=== PATIENT | female | born 1980 | race African-American/Black ===

== ENCOUNTER 2021-11-29 15:09 | Inpatient (IN) | payer BC ==
[~2021-11-29] VITALS: Ht 157.5 cm; Wt 33.1 kg
[2021-11-29] MEDS ORDERED: METHYLPREDNISOLONE SOD SUCC 125 MG/2 ML VIAL IV STA (18:58)
[2021-11-29] MEDS ORDERED: IPRATROPIUM BROMIDE (0.02%) 0.5MG/2.5ML NEB HHN STA (18:58)
[2021-11-29] MEDS ORDERED: ALBUTEROL (0.083%) 2.5MG/3ML NEB HHN STA (18:58)
[2021-11-29 19:52] LABS: HEMATOCRIT. 42.8 % (36.0-48.0); HEMOGLOBIN. 13.8 g/dL (12.0-16.0); MEAN CORPUSCULAR VOLUME 92.7 fL (81.0-99.0); MEAN PLATELET VOLUME 10.1 fl (7.4-10.4); PLATELET 153 x1000/uL (130-400); RED BLOOD CELL COUNT 4.61 mill/uL (4.2-5.4); RED CELL DISTRIBUTION WIDTH 13.3 % (11.6-14.6)
[2021-11-29 19:57] LABS: CHLORIDE 107 mEq/L (98-107)
[2021-11-29] MEDS ORDERED: SODIUM CHLORIDE 0.9% 1000ML BAG (SEPSIS BOLUS) IV ONE (20:45)
[2021-11-29 21:44] LABS: PLATELET ESTIMATE NORMAL
[2021-11-29] MEDS ORDERED: PIPERACILLIN/TAZ 3.375G PREMIX 50 ML IV ONE (22:30)
[2021-11-29] MEDS ORDERED: VANCOMYCIN 1G PREMIX 200 ML IV ONE (22:30)
[2021-11-30] MEDS ORDERED: ACETAMINOPHEN 325MG TABLET PO PRN (07:00)
[2021-11-30] MEDS ORDERED: IPRATROPIUM/ALBUTEROL 0.5-3(2.5)MG/3ML NEB HHN PRN (07:00)
[2021-11-30] MEDS ORDERED: CLONIDINE 0.1MG TABLET PO PRN (07:00)
[2021-11-30] MEDS ORDERED: PIPERACILLIN/TAZ 3.375G PREMIX 50 ML IV SCH (07:30)
[2021-11-30] MEDS ORDERED: DEXT 5%/0.45% NACL KCL 20MEQ/L 1,000 ML IV SCH (08:00)
[2021-11-30] MEDS: FAMOTIDINE 20MG/2ML VIAL IV SCH ×2 (09:54→20:39)
[2021-11-30] MEDS: DEXAMETHASONE 10 MG/ML VIAL IV SCH (09:55)
[2021-11-30] MEDS: PIPERACILLIN/TAZOBACTAM 3.375 G in DEXTROSE 5% WATER 50 ML IV SCH ×3 (09:56→21:34)
[2021-11-30] MEDS: ENOXAPARIN 40MG/0.4ML SYR SUBCUT SCH (09:56)
[2021-11-30] MEDS: DEXT 5%/0.45% NACL KCL 20MEQ/L 1,000 ML IV SCH ×2 (09:57→20:39)
[2021-11-30 10:27] LABS: BG BASE EXCESS -0.8 mmol/L (-2.0-2.0); BG CARBOXYHEMOGLOBIN 0.1 % (0.5-1.5); BG DEOXYHEMOGLOBIN 7.3 % (0.0-5.0); BG FRACTION INSPIRED OXYGEN 21; BG HCO3 ACT 24.5 mmol/L (22.0-26.0); BG METHEMOGLOBIN 0.3 % (0.0-1.5); BG OXYGEN SATURATION 92.7 % (92.0-98.5); BG OXYHEMOGLOBIN 92.3 % (94.0-97.0); BG PCO2 43.2 mmHg (35.0-45.0); BG PH 7.372 (7.350-7.450); BG PO2 66.7 mmHg (75.0-100.0); BG SAMPLE SITE RIGHT BRACHIAL; BG TOTAL HEMOGLOBIN 13.5 g/dL (12.0-18.0); BG VENT MODE ROOM AIR
[2021-11-30 10:32] VITALS: BP 146/111
[2021-11-30 11:54] LABS: C REACTIVE PROTEIN QUANT 8.1 mg/L (0.0-3.0)
[2021-11-30 12:00] VITALS: BP 110/64
[2021-11-30 16:00] VITALS: BP 151/86
[2021-11-30 20:00] VITALS: BP 116/86
[2021-12-01] VITALS: BP 140/104
[2021-12-01 04:00] VITALS: BP 147/94
[2021-12-01] MEDS: PIPERACILLIN/TAZOBACTAM 3.375 G in DEXTROSE 5% WATER 50 ML IV SCH ×3 (05:22→20:54)
[2021-12-01] MEDS ORDERED: POTASSIUM CHLORIDE INJ 20 MEQ in DEXT 5%/0.45% NACL 1000ML 1,000 ML IV SCH (06:00)
[2021-12-01 08:00] VITALS: BP 159/94
[2021-12-01] MEDS: ENOXAPARIN 40MG/0.4ML SYR SUBCUT SCH (08:45)
[2021-12-01] MEDS: DEXAMETHASONE 10 MG/ML VIAL IV SCH (08:46)
[2021-12-01] MEDS: FAMOTIDINE 20MG/2ML VIAL IV SCH (08:46)
[2021-12-01 12:00] VITALS: BP 155/96
[2021-12-01] MEDS ORDERED: GUAIFENESIN 600MG ER TABLET PO SCH (12:15)
[2021-12-01] MEDS: LORAZEPAM 0.5MG TABLET PO PRN ×2 (12:27→20:53)
[2021-12-01] MEDS ORDERED: GUAIFENESIN 200MG/10ML SUGAR FREE UDC PO PRN (12:30)
[2021-12-01 16:00] VITALS: BP 132/87
[2021-12-01 20:00] VITALS: BP 144/85
[2021-12-01] MEDS: GUAIFENESIN 200MG/10ML SUGAR FREE UDC PO SCH (20:53)
[2021-12-02] VITALS (7 sets, daily range): BP systolic 132–148; BP diastolic 77–104
[2021-12-02] MEDS: GUAIFENESIN 200MG/10ML SUGAR FREE UDC PO SCH ×6 (01:03→20:53)
[2021-12-02] MEDS: PIPERACILLIN/TAZOBACTAM 3.375 G in DEXTROSE 5% WATER 50 ML IV SCH ×3 (05:04→20:53)
[2021-12-02] MEDS: DEXAMETHASONE 10 MG/ML VIAL IV SCH (08:59)
[2021-12-02] MEDS ORDERED: FAMOTIDINE 20MG TABLET PO SCH (09:00)
[2021-12-02] MEDS ORDERED: ENOXAPARIN 30MG/0.3ML SYR SUBCUT SCH (09:00)
[2021-12-02] MEDS ORDERED: DEXTL PO (16:33)
[2021-12-02] MEDS ORDERED: GUAI600T26 MT (16:33)
[2021-12-02] MEDS ORDERED: IOHEXOL-350 100 ML BOTTLE ONE (17:33)
== END 2021-12-03 00:05 | disposition home or self-care (01) | DRG 177 ==
LOC: ER 15:09 → 7EST 11-30 03:17 → ENRESERV 11-30 06:28 → 7EST 11-30 08:22
PROVIDERS: ADMIT Internal Medicine; ATTEND Internal Medicine
DX: U07.1 COVID-19 (principal); J96.01 Acute respiratory failure with hypoxia; G80.9 Cerebral palsy, unspecified; Z82.49 Family history of ischemic heart disease and other diseases of the circulatory system
CPT/HCPCS: 36415; 36600; 70490; 71045; 71275; 80053; 82375; 82805; 83605; 83615; 83880; 84145; 85025; 85379; 85651; 86140; 87426; 87804; 92610; 93005; 94640; 99291; C9803; J1100; J1650; J2543; J2930; J3370; J3480; J3490; J7030; J7060; Q9967

== ENCOUNTER 2023-11-08 17:35 | Emergency (ER) | payer BC, OTHER ==
[~2023-11-08] VITALS: Ht 162.6 cm; Wt 50.0 kg
[~2023-11-08 17:35] MED LIST: DEXTL PO; GUAI600T26 MT
[2023-11-08 17:42] VITALS: O2SAT 100
[2023-11-08 18:46] LABS: BASOPHILS % 0.7 % (0.0-2.0); EOSINOPHILS % 0.9 % (0.0-5.0); HEMATOCRIT. 41.6 % (36.0-48.0); HEMOGLOBIN. 13.6 g/dL (12.0-16.0); LYMPHOCYTES % 32.8 % (20.0-50.0); MEAN CORPUSCULAR HGB CONC 32.7 g/dL (31.0-37.0); MEAN CORPUSCULAR VOLUME 94.6 fL (81.0-99.0); MEAN PLATELET VOLUME 10.6 fl (7.4-10.4); MONOCYTES % 10.3 % (2.0-8.0); NEUTROPHILS % 55.3 % (40.0-76.0); PLATELET 159 x1000/uL (130-400); RED CELL DISTRIBUTION WIDTH 12.6 % (11.6-14.6); WHITE BLOOD COUNT 6.7 x1000/uL (4.5-11.0)
[2023-11-08 18:50] LABS: CHLORIDE 106 mEq/L (98-107); POTASSIUM 4.6 mEq/L (3.5-5.1); SODIUM 140 mEq/L (136-145)
[2023-11-08 18:51] LABS: CALCIUM 9.4 mg/dL (8.7-10.4); CARBON DIOXIDE 28 mEq/L (21-32)
[2023-11-08 18:56] LABS: CREATININE 0.8 mg/dL (0.6-1.0); GLUCOSE 79 mg/dL (70-105); UREA NITROGEN BLOOD 20 mg/dL (9-23)
[2023-11-08 19:16] LABS: TROPONIN I HIGH SENSITIVITY < 4 ng/L (3.0-34)
[2023-11-08 20:40] VITALS: BP 123/61; PULSE 90; RESP 18; TEMP 98.6
== END 2023-11-08 20:40 | disposition home or self-care (01) ==
LOC: ER 17:35
DX: R07.81 Pleurodynia (principal); Z98.890 Other specified postprocedural states
CPT/HCPCS: 36415; 71045; 80048; 84484; 85025; 93005; 99285